=== PATIENT | female | born 1980 | race Two or more races ===

== ENCOUNTER 2016-09-17 17:20 | Emergency (ER) | payer OTHER, BC, MEDICAID ==
[2016-09-17] MEDS ORDERED: IBUPROFEN 800 MG TABLET ONE (21:21)
--- NOTE | 2016-09-18 07:53 | RAD ---
RIGHT FEMUR 2 VIEWS HISTORY: Right knee pain. COMPARISONS: None. TECHNIQUE: Frontal and lateral views of the right femur. ALIGNMENT: Grossly unremarkable. FRACTURE: No displaced acute fracture. SOFT TISSUES: Grossly unremarkable. RADIOOPAQUE FOREIGN BODY: None. DEGENERATIVE CHANGE: Moderate degenerative change the right knee with osteophyte formation and early medial joint space narrowing. IMPRESSION: No gross malalignment or displaced acute fracture noted. Moderate osteoarthritic change of the right knee.
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
== END 2016-09-17 21:34 | disposition home or self-care (01) ==
LOC: ED 17:20
DX: S83.91XA Sprain of unspecified site of right knee, initial encounter (principal); V89.2XXA Person injured in unspecified motor-vehicle accident, traffic, initial encounter; Y92.410 Unspecified street and highway as the place of occurrence of the external cause

== ENCOUNTER 2016-12-23 14:53 | Emergency (ER) | payer BC, MEDICAID ==
[2016-12-23 17:03] LABS: URINE BILIRUBIN NEGATIVE (NEGATIVE); URINE BLOOD NEGATIVE (NEGATIVE); URINE GLUCOSE (UA) NEGATIVE (NEGATIVE); URINE LEUKOCYTE ESTERASE NEGATIVE (NEGATIVE); URINE NITRITE NEGATIVE (NEGATIVE); URINE PROTEIN NEGATIVE (NEGATIVE); URINE UROBILINOGEN NORMAL (0-1 mg/dl)
[2016-12-23 17:05] LABS: URINE APPEARANCE CLOUDY; URINE COLOR YELLOW
[2016-12-23 17:06] LABS: HCG,QUALITATIVE URINE NEGATIVE
[2016-12-23 17:13] LABS: URINE RBC 0 /hpf; URINE WBC 0-3 /hpf
[2016-12-23 17:14] LABS: URINE BACTERIA 3+
== END 2016-12-23 18:21 | disposition home or self-care (01) ==
LOC: ED 14:53
DX: M54.5 Low back pain (principal); G89.29 Other chronic pain